=== PATIENT | female | born 1980 | race African-American/Black ===

== ENCOUNTER 2017-05-24 10:07 | Emergency (ER) | payer OTHER ==
[2017-05-24 10:22] VITALS: BP 108/65; PULSE 64; TEMP 97.9; BMI 23.0
--- NOTE | 2017-05-24 11:56 | PDOC ---
History of Present Illness - General Chief Complaint: Foreign Body (FB) Stated Complaint: FOREIGN BODY Time Seen by Provider: 05/24/17 10:08 History Source: Patient Exam Limitations: No Limitations - History of Present Illness Initial Comments: 05/24/17 11:51 Concerned about retention of tampon. States used one last night, had sex cleaned up and then reinserted another and was unable to extract the previous. Denies fever, pain, drainage or problems. Timing/Duration: unsure Severity: mild Associated Symptoms: reports: denies symptoms Past History - Past Medical History Allergies/Adverse Reactions: Allergies Allergy/AdvReac Type Severity Reaction Status Date / Time No Known Drug Allergies Allergy Verified 05/24/17 10:22 Home Medications: Ambulatory Orders NK [No Known Home Medication] 05/24/17 Anemia: No Asthma: No Cancer: Yes (RIGHT BREAST CA-MASTECTOMY 2003,HAD CHEMO/RT) Cardiac Disorders: No CVA: No COPD: No CHF: No Dementia: No Diabetes: No GI Disorders: No Disorders: No HTN: No Hypercholesterolemia: No Liver Disease: No Seizures: No Thyroid Disease: No - Surgical History Abdominal Surgery: No Appendectomy: No Cardiac Surgery: No Cholecystectomy: No Lung Surgery: No Neurologic Surgery: No Orthopedic Surgery: No - Suicide/Smoking/Psychosocial Hx Smoking History: Never smoked Have you smoked in the past 12 months: No Hx Alcohol Use: No Drug/Substance Use Hx: No Substance Use Type: None Hx Substance Use Treatment: No *Physical Exam - Vital Signs Last Vital Signs Temp Pulse Resp BP Pulse Ox 97.9 F 64 18 108/65 99 05/24/17 10:18 05/24/17 10:18 05/24/17 10:18 05/24/17 10:18 05/24/17 10:18 - Physical Exam General Appearance: Yes: Nourished, Appropriately Dressed. No: Apparent Distress HEENT: positive: MAYELA, Normal ENT Inspection, TMs Normal, Pharynx Normal Neck: positive: Supple Female Pelvic Exam: positive: normal external exam, other (noted cotton tampon in vaginal vault) Gastrointestinal/Abdominal: positive: Soft. 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 NO other retained products/ clear with no drainage ) Medical Decision Making - Medical Decision Making 05/24/17 11:57 Retained vaginal tampon removed without incident 05/24/17 11:58 *DC/Admit/Observation/Transfer Diagnosis at time of Disposition: Foreign body in vagina Qualifiers: Encounter type: initial encounter Qualified Code(s): T19.2XXA - Foreign body in vulva and vagina, initial encounter; T19.2XXA - Foreign body in vulva and vagina, initial encounter - Discharge Dispostion Disposition: HOME Condition at time of disposition: Stable Admit: No - Referrals Referrals: Emerita Gonsales [Primary Care Provider] - - Patient Instructions Printed Discharge Instructions: DI for Foreign Body in Vagina-Adult Additional Instructions: keep clean , no need to douche or use any other treatments - Post Discharge Activity Forms/Work/School Notes: Back to Work
== END 2017-05-24 12:00 | disposition home or self-care (01) ==
LOC: JERFT 10:07
PROC: 0UCG7ZZ Extirpation of Matter from Vagina, Via Natural or Artificial Opening (ICD-10-PCS; principal; 2017-05-24)
DX: T19.2XXA Foreign body in vulva and vagina, initial encounter (principal); Z85.3 Personal history of malignant neoplasm of breast; Z90.11 Acquired absence of right breast and nipple
CPT/HCPCS: 99281-25

== ENCOUNTER 2018-12-21 14:15 | Emergency (ER) | payer SELFPAY ==
[2018-12-21 14:24] VITALS: BP 109/73; PULSE 81; TEMP 97.8; BMI 22.1
--- NOTE | 2018-12-24 12:04 | EKG ---
Test Reason : Blood Pressure : / mmHG Vent. Rate : 079 BPM Atrial Rate : 084 BPM P-R Int : 138 ms QRS Dur : 080 ms QT Int : 384 ms P-R-T Axes : 063 041 044 degrees QTc Int : 440 ms POOR DATA QUALITY, INTERPRETATION MAY BE ADVERSELY AFFECTED NORMAL SINUS RHYTHM WITH SINUS ARRHYTHMIA NORMAL ECG NO PREVIOUS ECGS AVAILABLE Confirmed by Patrick Hauser MD ([id number]) on 12/24/2018 12:03:55 PM Referred By: Confirmed By:Patrick Hauser MD
== END 2018-12-21 15:08 | disposition left against medical advice (07) ==
LOC: JER 14:15
DX: Z53.21 Procedure and treatment not carried out due to patient leaving prior to being seen by health care provider (principal)
CPT/HCPCS: 93005; 93010; 99281-25

== ENCOUNTER 2019-01-13 16:52 | Emergency (ER) | payer SELFPAY | END 2019-01-13 17:40 | disposition home or self-care (01) | LOC: JERFT 16:52 ==

== ENCOUNTER 2019-01-24 22:33 | Emergency (ER) | payer SELFPAY ==
[2019-01-24 22:51] VITALS: BP 102/67; PULSE 86; TEMP 98; BMI 22.1
--- NOTE | 2019-01-24 23:20 | PDOC ---
History of Present Illness - General Chief Complaint: Headache Stated Complaint: SINUS PROBLEM Past History - Past Medical History Allergies/Adverse Reactions: Allergies Allergy/AdvReac Type Severity Reaction Status Date / Time No Known Drug Allergies Allergy Verified 01/24/19 22:51 Home Medications: Ambulatory Orders metroNIDAZOLE 0.75% VAG. GEL [Metrogel 0.75% *Vaginal Gel* -] 1 applic VG HS #1 tube 01/13/19 Anemia: No Asthma: No Cancer: Yes (RIGHT BREAST CA-MASTECTOMY 2003,HAD CHEMO/RT) Cardiac Disorders: No CVA: No COPD: No CHF: No Dementia: No Diabetes: No GI Disorders: No Disorders: No HTN: No Hypercholesterolemia: No Liver Disease: No Seizures: No Thyroid Disease: No - Surgical History Abdominal Surgery: No Appendectomy: No Cardiac Surgery: No Cholecystectomy: No Lung Surgery: No Neurologic Surgery: No Orthopedic Surgery: No - Immunization History Immunization Up to Date: Yes - Suicide/Smoking/Psychosocial Hx Smoking History: Never smoked Have you smoked in the past 12 months: No Information on smoking cessation initiated: No Hx Alcohol Use: No Drug/Substance Use Hx: No Substance Use Type: None Hx Substance Use Treatment: No Review of Systems - Review of Systems Able to Perform ROS?: Yes Comments:: GENERAL/CONSTITUTIONAL: No fever or chills. No weakness._ HEAD, EYES, EARS, NOSE AND THROAT: No change in vision. No ear pain or discharge. No sore throat._ CARDIOVASCULAR: No chest pain or shortness of breath_ RESPIRATORY: Denies cough, hemoptysis_ GASTROINTESTINAL: No nausea, vomiting, diarrhea or constipation._ GENITOURINARY: No dysuria, frequency, or change in urination._ MUSCULOSKELETAL: No joint or muscle swelling or pain. No neck or back pain._ SKIN: No rash_ NEUROLOGIC: No headache, vertigo, loss of consciousness, or change in strength/ sensation._ ENDOCRINE: No increased thirst. No abnormal weight change_ HEMATOLOGIC/LYMPHATIC: No anemia, easy bleeding, or history of blood clots._ ALLERGIC/IMMUNOLOGIC: No hives or skin allergy._ 01/24/19 23:18 Is the patient limited Lao proficient: No *Physical Exam - Vital Signs Last Vital Signs Temp Pulse Resp BP Pulse Ox 98.0 F 86 16 102/67 100 01/24/19 22:49 01/24/19 22:49 01/24/19 22:49 01/24/19 22:49 01/24/19 22:49 - Physical Exam Comments: GENERAL: Awake, alert, and oriented to person/place/time, in no acute distress_ HEAD: No signs of trauma, normocephalic, atraumatic _ EYES: PERRLA, EOMI, sclera anicteric, conjunctiva clear_ ENT: Hearing grossly normal, nares patent, oropharynx clear without exudates. No uvular deviation. Moist mucosa_ NECK: Normal ROM, supple, no lymphadenopathy, JVD, or masses_ LUNGS: No distress, speaks in full sentences, clear to auscultation bilaterally _ HEART: Regular rate and rhythm, normal S1 and S2, no murmurs appreciated, peripheral pulses normal and equal bilaterally._ ABDOMEN: Soft, nontender, normoactive bowel sounds. No guarding, no rebound. No masses_ EXTREMITIES: Normal inspection, Normal range of motion, no edema. No clubbing or cyanosis_ NEUROLOGICAL: Cranial nerves II through XII grossly intact. Normal speech, normal gait, no focal sensorimotor deficits _ SKIN: Warm, Dry, normal turgor, no rashes or lesions noted_ 01/24/19 23:18
[2019-01-25] MEDS ORDERED: METOCLOPRAMIDE HCL INJECTION 10 MG/2 ML VIAL IVPUSH ONE (00:11)
--- NOTE | 2019-01-25 00:12 | PDOC ---
History of Present Illness - General Chief Complaint: Headache Stated Complaint: SINUS PROBLEM Time Seen by Provider: 01/25/19 00:03 History Source: Patient Exam Limitations: No Limitations - History of Present Illness Initial Comments: 01/25/19 02:01 HISTORY OF PRESENT ILLNESS: This is a 38-year-old woman denies medical history presents emergency department for evaluation of post ocular headache since awakening this morning. Patient reports the pain as a constant throbbing sensation behind her eyes rated 7/10. She denies any blurry vision, dizziness, loss of vision, ear pain, sore throats or fevers. No recent travel or sick contacts. PAST MEDICAL HISTORY: Denies past medical history SURGICAL HISTORY: Denies ALLERGIES: No known drug allergies REVIEW OF SYSTEMS General/Constitutional: Denies fever or chills. Denies weakness, weight change. HEENT: Denies change in vision. Denies ear pain or discharge. Denies sore throat. Cardiovascular: Denies chest pain or shortness of breath. Respiratory: Denies cough, wheezing, or hemoptysis. Gastrointestinal: Denies nausea, vomiting, diarrhea or constipation. Denies rectal bleeding. Genitourinary: Denies dysuria, frequency, or change in urination. Musculoskeletal: Denies joint or muscle swelling or pain. Denies neck or back pain. Skin and breasts: Denies rash or easy bruising. Neurologic: see HPI Psychiatric: Denies depression or anxiety. Endocrine: Denies increased thirst. Denies abnormal weight change. Hematologic/Lymphatic: Denies anemia, easy bleeding, or history of blood clots. Allergic/Immunologic: Denies hives or skin allergy. Denies latex allergy. PHYSICAL EXAM General Appearance: Well-appearing, appropriately dressed. No apparent distress , no intoxication. HEENT: EOMI, PERRLA, normal ENT inspection, normal voice, TMs normal, pharynx normal. No conjunctival pallor. No photophobia, scleral icterus. No sinus tenderness appreciated. Neck: Supple. Trachea midline. No tenderness, rigidity, carotid bruit, stridor , lymphadenopathy, or thyromegaly. Respiratory/Chest: Lungs CTAB. No shortness of breath, chest tenderness, respiratory distress, accessory muscle use. No crackles, rales, rhonchi, stridor , wheezing, dullness Cardiovascular: RRR. S1, S2. No JVD, murmur, bradycardia, tachycardia. Vascular Pulses: Dorsalis-Pedis (R): 2+, Dorsalis-Pedis (L): 2+ Gastrointestinal/Abdominal: Normal bowel sounds. Abdomen soft, non-distended. No tenderness or rebound tenderness. No organomegaly, pulsatile mass, guarding, hernia, hepatomegaly, splenomegaly. Lymphatic: No adenopathy, tenderness. Musculoskeletal/Extremities: Normal inspection. FROM of all extremities, normal capillary refill. Pelvis Stable. No CVA tenderness. No tenderness to extremities, pedal edema, swelling, erythema or deformity. Integumentary: Appropriate color, dry, warm. 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 Fully oriented, alert. Appropriate mood/affect. Motor strength 5/5. No appreciable EOM palsy, facial droop or sensory deficit. Past History - Past Medical History Allergies/Adverse Reactions: Allergies Allergy/AdvReac Type Severity Reaction Status Date / Time No Known Drug Allergies Allergy Verified 01/24/19 22:51 Home Medications: Ambulatory Orders Metoclopramide HCl [Reglan] 10 mg PO Q8H PRN #15 tablet 01/25/19 Naproxen [Naprosyn] 500 mg PO BID PRN #20 tablet 01/25/19 Anemia: No Asthma: No Cancer: Yes (RIGHT BREAST CA-MASTECTOMY 2003,HAD CHEMO/RT) Cardiac Disorders: No CVA: No COPD: No CHF: No Dementia: No Diabetes: No GI Disorders: No Disorders: No HTN: No Hypercholesterolemia: No Liver Disease: No Seizures: No Thyroid Disease: No - Surgical History Abdominal Surgery: No Appendectomy: No Cardiac Surgery: No Cholecystectomy: No Lung Surgery: No Neurologic Surgery: No Orthopedic Surgery: No - Immunization History Immunization Up to Date: Yes - Suicide/Smoking/Psychosocial Hx Smoking History: Never smoked Have you smoked in the past 12 months: No Information on smoking cessation initiated: No Hx Alcohol Use: No Drug/Substance Use Hx: No Substance Use Type: None Hx Substance Use Treatment: No *Physical Exam - Vital Signs Last Vital Signs Temp Pulse Resp BP Pulse Ox 98.0 F 86 16 102/67 100 01/24/19 22:49 01/24/19 22:49 01/24/19 22:49 01/24/19 22:49 01/24/19 22:49 ED Treatment Course - RADIOLOGY Radiology Studies Ordered: Category Date Time Status HEAD CT WITHOUT CONTRAST [CT] Stat CT Scan 01/25/19 00:11 Ordered Medical Decision Making - Medical Decision Making 01/25/19 02:02 A/P: 38-year-old woman with post ocular headache Urine testing CT of the head without contrast Reglan 10 mg IV Benadryl 25 mg IV Toradol 30 mg IV Reassess 01/25/19 02:03 CT of the head read is pending. Patient signed out to Dr. Mccloud *DC/Admit/Observation/Transfer Diagnosis at time of Disposition: Migraine Qualifiers: Migraine type: unspecified Status migrainosus presence: without status migrainosus Intractability: not intractable Qualified Code(s): G43.909 - Migraine, unspecified, not intractable, without status migrainosus - Discharge Dispostion Disposition: HOME Condition at time of disposition: Improved - Prescriptions Prescriptions: Metoclopramide HCl [Reglan] 10 mg PO Q8H PRN #15 tablet PRN Reason: Headache/Nausea Naproxen [Naprosyn] 500 mg PO BID PRN #20 tablet PRN Reason: Headache - Referrals Referrals: Ryan Pool MD [Staff Physician] - Janel Duckworth MD [Staff Physician] - - Patient Instructions Printed Discharge Instructions: DI for Migraine Additional Instructions: A CAT scan the head is negative. Please take 500 mg naproxen every 12 as needed for headache. For additional relief, take 10 mg of Reglan every 6-8 hours as needed. May take several days before symptoms improved. Please make an appointment with a neurologist. Call to schedule an appointment. - Post Discharge Activity
[2019-01-25] MEDS ORDERED: METOCLOPRAMIDE HCL INJECTION 10 MG/2 ML VIAL ONE (00:29)
--- NOTE | 2019-01-25 01:38 | PDOC ---
*Physical Exam - Vital Signs Last Vital Signs Temp Pulse Resp BP Pulse Ox 98.0 F 86 16 102/67 100 01/24/19 22:49 01/24/19 22:49 01/24/19 22:49 01/24/19 22:49 01/24/19 22:49 ED Treatment Course - ADDITIONAL ORDERS Additional order review: Laboratory Results 01/25/19 00:39 Urine HCG, Qual Negative - Medications Given in the ED: ED Medications Discontinued Medications Generic Name Dose Route Start Last Admin Trade Name Freq PRN Reason Stop Dose Admin Diphenhydramine HCl 25 mg 01/25/19 00:11 01/25/19 00:39 Benadryl Injection - IVPUSH 01/25/19 00:12 25 mg ONCE ONE Administration Metoclopramide HCl 10 mg 01/25/19 00:11 01/25/19 00:39 Reglan Injection - IVPUSH 01/25/19 00:12 10 mg ONCE ONE Administration Medical Decision Making - Medical Decision Making 01/25/19 01:37 Pt seen by the Advanced Practice Provider under my direct supervision Ancillary studies reviewed I agree with plan as outlined by the Advanced Practice Provider REBA Jackson 01/25/19 04:54 CT head reviewed. No acute findings. The patient was reassessed after receiving medication feels significant better. This is likely her migraines. We'll discharge her with naproxen and Reglan and follow-up with a neurologist. Return precautions given. I discussed the physical exam findings, ancillary test results and final diagnoses with the patient. I answered all of the patient's questions. The patient was satisfied with the care received and felt comfortable with the discharge plan and treatment plan. The patient will call their primary care physician within 24 hours to arrange follow-up and will return to the Emergency Department with any new, persistant or worsening symptoms. *DC/Admit/Observation/Transfer Diagnosis at time of Disposition: Migraine Qualifiers: Migraine type: unspecified Status migrainosus presence: without status migrainosus Intractability: not intractable Qualified Code(s): G43.909 - Migraine, unspecified, not intractable, without status migrainosus - Discharge Dispostion Disposition: HOME Condition at time of disposition: Improved Decision to Admit order: No - Prescriptions Prescriptions: Metoclopramide HCl [Reglan] 10 mg PO Q8H PRN #15 tablet PRN Reason: Headache/Nausea Naproxen [Naprosyn] 500 mg PO BID PRN #20 tablet PRN Reason: Headache - Referrals Referrals: Ryan Pool MD [Staff Physician] - Janel Duckworth MD [Staff Physician] - - Patient Instructions Printed Discharge Instructions: DI for Migraine Additional Instructions: A CAT scan the head is negative. Please take 500 mg naproxen every 12 as needed for headache. For additional relief, take 10 mg of Reglan every 6-8 hours as needed. May take several days before symptoms improved. Please make an appointment with a neurologist. Call to schedule an appointment. - Post Discharge Activity
[2019-01-25] MEDS ORDERED: KETOROLAC TROMETHAMINE 30 MG/1 ML VIAL IVPUSH ONE (02:04)
[2019-01-25] MEDS ORDERED: KETOROLAC TROMETHAMINE 30 MG/1 ML VIAL ONE (02:08)
== END 2019-01-25 05:07 | disposition home or self-care (01) ==
LOC: JER 22:33
PROC: 3E033GC Introduction of Other Therapeutic Substance into Peripheral Vein, Percutaneous Approach (ICD-10-PCS; principal; 2019-01-24)
PROC: 3E033GC Introduction of Other Therapeutic Substance into Peripheral Vein, Percutaneous Approach (ICD-10-PCS; 2019-01-24)
DX: G43.909 Migraine, unspecified, not intractable, without status migrainosus (principal); Z85.3 Personal history of malignant neoplasm of breast; Z90.11 Acquired absence of right breast and nipple
CPT/HCPCS: 70450-TC; 84703; 99282-25

== ENCOUNTER 2019-09-30 14:56 | Emergency (ER) | payer SELFPAY ==
[2019-09-30 15:04] VITALS: BP 108/61; PULSE 82; TEMP 98.2; BMI 21.9
--- NOTE | 2019-09-30 15:04 | PDOC ---
Rapid Medical Evaluation Chief Complaint: Cold Symptoms Time Seen by Provider: 09/30/19 15:01 Medical Evaluation: Allergies Allergy/AdvReac Type Severity Reaction Status Date / Time No Known Drug Allergies Allergy Verified 01/24/19 22:51 09/30/19 15:02 I have performed a brief in-person evaluation of this patient. The patient presents with a chief complaint of: cough and low grade fever for the last 4 days. Temp 100.1F at home. No sputum production. Pt states that the cough is causing her ribs to hurt. No recent travel, no sick contacts. 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 Pertinent physical exam findings: stable, non-toxic. O2 saturation 99% on RA. Mask placed. I have ordered the following: chest xray The patient will proceed to the ED for further evaluation Discharge Disposition - Diagnosis Cough - Referrals - Patient Instructions - Post Discharge Activity
--- NOTE | 2019-09-30 16:06 | PDOC ---
History of Present Illness - General Chief Complaint: Cold Symptoms Stated Complaint: COUGH Time Seen by Provider: 09/30/19 15:01 - History of Present Illness Initial Comments: 09/30/19 16:04 39-year-old female with chronic cough presents for evaluation because she is developed a low-grade fever yesterday. She has no comorbidities. Past History - Past Medical History Allergies/Adverse Reactions: Allergies Allergy/AdvReac Type Severity Reaction Status Date / Time No Known Drug Allergies Allergy Verified 01/24/19 22:51 Home Medications: Ambulatory Orders Metoclopramide HCl [Reglan] 10 mg PO Q8H PRN #15 tablet 01/25/19 Naproxen [Naprosyn] 500 mg PO BID PRN #20 tablet 01/25/19 Anemia: No Asthma: No Cancer: Yes (RIGHT BREAST CA-MASTECTOMY 2003,HAD CHEMO/RT) Cardiac Disorders: No CVA: No COPD: No CHF: No Dementia: No Diabetes: No GI Disorders: No Disorders: No HTN: No Hypercholesterolemia: No Liver Disease: No Seizures: No Thyroid Disease: No - Surgical History Abdominal Surgery: No Appendectomy: No Cardiac Surgery: No Cholecystectomy: No Lung Surgery: No Neurologic Surgery: No Orthopedic Surgery: No - Immunization History Immunization Up to Date: Yes - Psycho Social/Smoking Cessation Hx Smoking History: Never smoked Have you smoked in the past 12 months: No Information on smoking cessation initiated: No Hx Alcohol Use: No Drug/Substance Use Hx: No Substance Use Type: None Hx Substance Use Treatment: No Review of Systems - Review of Systems Constitutional: Yes: Fever Respiratory: Yes: Cough *Physical Exam - Vital Signs Last Vital Signs Temp Pulse Resp BP Pulse Ox 98.2 F 82 18 108/61 100 09/30/19 15:03 09/30/19 15:03 09/30/19 15:03 09/30/19 15:03 09/30/19 15:03 - Physical Exam 09/30/19 16:04 GENERAL: The patient is awake, alert, and fully oriented, in no acute distress. HEAD: Normal with no signs of trauma. EYES: sclera anicteric, conjunctiva clear. ENT: Ears normal tympanic membranes normal oropharynx clear uvula midline NECK: Normal range of motion LUNGS: Breath sounds equal, clear to auscultation bilaterally. No wheezes, and no crackles. HEART: S1 and S2 without murmur, rub or gallop. ABDOMEN: Soft, nontender, normoactive bowel sounds. No guarding, no rebound. No masses. EXTREMITIES: Normal range of motion, no edema. No clubbing or cyanosis. No co rds, erythema, or tenderness. NEUROLOGICAL: Cranial nerves II through XII grossly intact. PSYCH: Normal mood, normal affect. SKIN: Warm, Dry, normal turgor, no rashes or lesions noted. Medical Decision Making - Medical Decision Making 09/30/19 16:05 Influenza negative, supportive care for viral upper respiratory infection follow-up with primary care physician. I have reviewed the pathophysiology with the patient. They are in agreement with the treatment plan all questions were answered to their satisfaction. Understanding for follow-up without fail was also conveyed to the patient. Again they are in agreement. Discharge - Discharge Information Problems reviewed: Yes Clinical Impression/Diagnosis: Cough, Viral URI with cough Condition: Stable Disposition: HOME - Admission No - Follow up/Referral Referrals: Lexi Dale MD [Staff Physician] - - Patient Discharge Instructions Additional Instructions: Supportive care. Maintain hydration with Pedialyte. Tylenol and Motrin as directed for fever and body aches. Return to the emergency room for worsening symptoms. And without fail follow-up with your primary care physician in 1 to 2 days for further evaluation and treatment options. - Post Discharge Activity Work/Back to School Note: Back to Work
== END 2019-09-30 16:13 | disposition home or self-care (01) ==
LOC: JERFT 14:56
DX: J06.9 Acute upper respiratory infection, unspecified (principal); B97.89 Other viral agents as the cause of diseases classified elsewhere; Z85.3 Personal history of malignant neoplasm of breast; Z90.11 Acquired absence of right breast and nipple
CPT/HCPCS: 71046-TC-FY; 87804; 99283-25

== ENCOUNTER 2020-11-22 17:25 | Emergency (ER) | payer SELFPAY ==
[2020-11-22 17:45] VITALS: BP 108/72; PULSE 69; TEMP 97.8; BMI 21.4
== END 2020-11-22 18:14 | disposition home or self-care (01) ==
LOC: JERFT 17:25
DX: H60.01 Abscess of right external ear (principal)
CPT/HCPCS: 99282-25

== ENCOUNTER 2021-03-27 22:18 | Emergency (ER) | payer SELFPAY ==
[2021-03-27 23:07] VITALS: BP 119/80; PULSE 76; TEMP 99; BMI 24.2
[2021-03-28 01:02] LABS: BASO % 0.3 % (0-2.0); EOS % 0.4 % (0-4.5); HEMATOCRIT 38.7 % (32.4-45.2); HEMOGLOBIN 12.9 GM/dL (10.7-15.3); LYMPH % 13.8 % (8-40); MCH 27.5 pg (25.7-33.7); MCHC 33.2 g/dl (32.0-36.0); MEAN CELL VOLUME 82.8 fl (80-96); MEAN PLT VOLUME 8.2 fl (7.5-11.1); MONO % 8.7 % (3.8-10.2); NEUT % 76.8 % (42.8-82.8); PLATELET COUNT 361 10^3/uL (134-434); RBC 4.67 M/mm3 (3.60-5.2); RDW 14.4 % (11.6-15.6)
[2021-03-28 01:03] LABS: PH,URINE 6.5 (5.0-8.0); URINE APPEARANCE CLOUDY; URINE BILIRUBIN NEGATIVE (NEGATIVE); URINE COLOR YELLOW; URINE GLUCOSE (UA) NEGATIVE (NEGATIVE); URINE KETONE NEGATIVE (NEGATIVE); URINE LEUK ESTERASE NEGATIVE (NEGATIVE); URINE NITRITE NEGATIVE (NEGATIVE); URINE PROTEIN NEGATIVE (NEGATIVE); URINE UROBILINOGEN 0.2 mg/dL (0.2-1.0)
[2021-03-28] MEDS ORDERED: ACETAMINOPHEN 325 MG TABLET (FP) PO ONE (01:16)
[2021-03-28 01:17] LABS: ALBUMIN 3.6 g/dl (3.4-5.0); CALCIUM 9.4 mg/dL (8.5-10.1)
[2021-03-28 01:20] LABS: CREATININE 0.9 mg/dL (0.55-1.3)
[2021-03-28 01:22] LABS: BILIRUBIN,TOTAL 0.2 mg/dL (0.2-1); TOT PROT 7.6 g/dl (6.4-8.2)
[2021-03-28] MEDS ORDERED: ACETAMINOPHEN 325 MG TABLET (FP) ONE (01:22)
== END 2021-03-28 04:30 | disposition home or self-care (01) ==
LOC: JER 22:18
DX: R10.10 Upper abdominal pain, unspecified (principal)
CPT/HCPCS: 36415; 71046-TC-FY; 74177-TC; 76705-TC; 80053; 81003; 83690; 84703; 85025; 87086; 93005; 93010; 99285-25